=== PATIENT | female | born 1985 | race Caucasian/White ===

== ENCOUNTER 2022-02-23 10:30 | Emergency (ER) | payer BC ==
[~2022-02-23] VITALS: Ht 157.5 cm; Wt 74.8 kg
[2022-02-23 10:56] VITALS: BP_SYST 113
[2022-02-23 11:41] LABS: BASOPHILS # (AUTO) 0.1 K/uL (0.0-0.2); BASOPHILS % (AUTO) 0.9 % (0.0-2.0); EOSINOPHILS # (AUTO) 0.1 K/uL (0.0-0.4); EOSINOPHILS % (AUTO) 1.8 % (0.0-4.0); HEMATOCRIT 34.7 % (36-48); HEMOGLOBIN 11.8 g/dL (12.0-16.0); LYMPHOCYTES # (AUTO) 1.6 K/uL (1.0-5.5); LYMPHOCYTES % (AUTO) 28.8 % (20.5-51.5); MEAN CORPUSCULAR HEMOGLOBIN 29 pg (27-31); MEAN CORPUSCULAR HGB CONC 34 % (32-36); MEAN CORPUSCULAR VOLUME 85 fL (79.0-98.0); MONOCYTES # (AUTO) 0.4 K/uL (0.0-1.0); MONOCYTES % (AUTO) 7.2 % (1.7-9.3); NEUTROPHILS # (AUTO) 3.5 K/uL (1.8-7.7); NEUTROPHILS % (AUTO) 61.3 % (40.0-70.0); PLATELET COUNT (AUTO) 358 K/uL (130-430); RED CELL DISTRIBUTION WIDTH 15.1 % (9.0-15.0); WHITE BLOOD COUNT (AUTO) 5.7 K/uL (4.8-10.8)
[2022-02-23 12:00] LABS: CALCIUM 9.2 mg/dL (8.4-11.0); CREATININE 0.74 mg/dL (0.55-1.30); POTASSIUM 3.6 mmol/L (3.5-5.1)
[2022-02-23 12:05] LABS: ALBUMIN 3.1 g/dL (3.4-4.8); C-REACTIVE PROTEIN QUANT 2.8 mg/dL (0-0.5); TOTAL BILIRUBIN 0.2 mg/dL (0.0-1.0)
[2022-02-23 12:15] LABS: BILIRUBIN,URINE NEGATIVE (NEGATIVE); BLOOD, URINE NEGATIVE (NEGATIVE); CLARITY/URINE CLEAR (CLEAR); COLOR,URINE YELLOW (YELLOW); GLUCOSE,URINE NEGATIVE (NEGATIVE); KETONES,URINE NEGATIVE (NEGATIVE); LEUKOCYTE ESTERASE ,URINE NEGATIVE (NEGATIVE); NITRITE, URINE NEGATIVE (NEGATIVE); PROTEIN URINE NEGATIVE (NEGATIVE); UROBILINOGEN,URINE 0.2 (0.2-1.0)
[2022-02-23 12:30] LABS: HCG,QUAL RESULT NEGATIVE (NEGATIVE)
--- NOTE | 2022-02-23 13:00 | NUR ---
Patient to ER bed H1 to gown for evaluation. Side rails up.
--- NOTE | 2022-02-23 13:10 | NUR ---
ER at bedside examining patient.
[2022-02-23] MEDS ORDERED: HYDR-3917 PO (13:36)
[2022-02-23] MEDS ORDERED: IBUP-1969 PO (13:36)
[2022-02-23 15:08] VITALS: BP_SYST 132
--- NOTE | 2022-02-23 15:10 | NUR ---
ERMD ORDERED D/C INSTRUCTIONS FOR PT, PT A&OX4. NO DISTRESS NOTED, PT EDUCATED ON D/C INSTRUCTIONS. EDUCATED TO FOLLOW UP WITH PCP. PT AMBULATED OUT OF THE ER WITH ACI IN HAND.
== END 2022-02-23 15:06 | disposition home or self-care (01) ==
LOC: SED 10:30
DX: R10.2 Pelvic and perineal pain (principal); R10.32 Left lower quadrant pain; Z79.899 Other long term (current) drug therapy
CPT/HCPCS: 36415; 76376; 76856-TC; 80053; 81003; 81025; 82150; 83690; 84703; 85025; 86140; 99284